=== PATIENT | male | born 1950 | race Caucasian/White ===

== ENCOUNTER 2018-07-06 09:02 | Day surgery (SDC) | payer MEDICARE ==
[2014-02-05 20:19] VITALS: BMI 30.1
[2018-07-06] MEDS ORDERED: Midazolam 2 MG/2 ML VIAL ONE (10:20)
[2018-07-06] MEDS ORDERED: Propofol 10 mg/ml Inj (20 ML) ONE (10:20)
[2018-07-06] MEDS ORDERED: Lactated Ringer's 1,000 ML IV ONE (10:21)
--- NOTE | 2018-07-06 10:21 | CP.SDSHP ---
Same Day Surgery H & P - History Proposed Procedure: EGD/colonoscopy Pre-Op Diagnosis: abdominal pain, weight loss - Allergies Allergies: Allergies Sulfa (Sulfonamide Antibiotics) Allergy (Verified 07/05/18 14:19) RASH chlorine Allergy (Uncoded 07/06/18 09:48) ITCHING peanuts Allergy (Uncoded 07/06/18 09:48) RASH shrimp Allergy (Uncoded 07/06/18 09:47) RASH - Physical Exam General Appearance: NAD Vital Signs: Vital Signs 07/06/18 09:35 Temperature 96.8 F L Pulse Rate 75 Respiratory 16 Rate Blood Pressure 136/93 H O2 Sat by Pulse 100 Oximetry Mental Status: Alert & Oriented x3 Neuro: WNL Heart: WNL Lungs: WNL GI: WNL - {Optional Preform as Required} Abdomen: WNL - Impression Pt. Evaluated Today:Candidate for Anesthesia & Procedure: Yes - Date & Time Date: 07/06/18 Time: 10:21 Short Stay Discharge - Short Stay Discharge Admitting Diagnosis/Reason for Visit: WEIGHT LOSS / ABDOMINAL PAIN Disposition: HOME/ ROUTINE
[2018-07-06 11:24] VITALS: TEMP 97.1
[2018-07-06 11:48] VITALS: RESP 13
[2018-07-06 11:50] VITALS: BP 102/78; PULSE 67; O2SAT 98
== END 2018-07-06 12:12 | disposition home or self-care (01) ==
LOC: C.ENDO 09:02
PROVIDERS: ATTEND Internal Medicine Gastroenterology
DX: R10.13 Epigastric pain (principal); R63.4 Abnormal weight loss; K44.9 Diaphragmatic hernia without obstruction or gangrene; K29.70 Gastritis, unspecified, without bleeding; Z12.11 Encounter for screening for malignant neoplasm of colon; D12.3 Benign neoplasm of transverse colon
CPT/HCPCS: 43239; 45385; 82948; 88305; 88312; 88313; 88342; J2001; J2250; J2704; J3010; J7120